=== PATIENT | female | born 1990 | race Caucasian/White ===

== ENCOUNTER 2021-10-04 14:45 | Inpatient (IN) ==
[2021-10-04] MEDS ORDERED: Melatonin 3 MG TABLET PO PRN (19:52)
[2021-10-04] MEDS ORDERED: Naloxone 0.4 MG/ML INJ IVP PRN (19:52)
[2021-10-04] MEDS ORDERED: Acetaminophen 325 MG TABLET PO PRN (20:07)
[2021-10-04] MEDS: Ringers Solution, Lactated 1,000 ML IVC SCH (22:24)
[2021-10-05] MEDS ORDERED: Acetaminophen IV 1,000 MG/100 ML BAG IVPB ONE (05:09)
[2021-10-05 06:21] LABS: Calcium 8.4 mg/dL (8.6-10.3); Magnesium 1.7 mg/dL (1.6-2.6); Phosphorous 1.8 mg/dL (2.7-4.5); Potassium 4.3 mEq/L (3.5-5.1)
[2021-10-05 06:27] LABS: Basophils % 0.2 %; Eosinophils % 0.1 %; Hematocrit 36.2 % (35.3-44.9); Hemoglobin 12.2 g/dL (11.5-15.4); Immature Granulocytes % 0.9 % (0-4); Mean Corpuscular HGB Conc 33.7 g/dL (31.6-35.5); Mean Platelet Volume 10.2 fL (9.4-12.4); Monocytes # 0.8 K/mcL (0.0-1.3); Monocytes % 6.6 %; Neutrophils # 10.3 K/mcL (1.6-8.9); Platelet Count 141 K/mcL (140-400); Red Blood Count 4.21 M/mcL (3.82-4.97); Red Cell Distribution Width 13.8 % (11.5-14.5); Segmented Neutrophils % 84.2 %; White Blood Count 12.2 K/mcL (4.3-11.1)
[2021-10-05] MEDS ORDERED: cefTRIAXone 1,000 MG in 0.9 % Sodium Chloride Mini Bag 100 ML IVPB SCH ×2 (07:00→12:00)
[2021-10-05] MEDS ORDERED: Ondansetron 4 MG/2 ML VIAL ONE (07:28)
[2021-10-05] MEDS ORDERED: *HR* Propofol 200 MG/20 ML VIAL IVP ONE (07:28)
[2021-10-05] MEDS ORDERED: *HR* Midazolam HCl 2 MG/2 ML VIAL ONE ×2 (07:28→08:26)
[2021-10-05] MEDS ORDERED: Lidocaine -MPF 2% 5 ML VIAL ONE ×2 (07:28→08:20)
[2021-10-05] MEDS ORDERED: *HR* FentaNYL (PF) 100 MCG/2 ML VIAL ONE (07:28)
[2021-10-05] MEDS ORDERED: Isovue-300 50ML VIAL ONE (07:39)
[2021-10-05] MEDS ORDERED: Dexmedetomidine HCl 400 MCG/100 ML MLS IVC ONE (07:43)
[2021-10-05] MEDS ORDERED: Melatonin 3 MG TABLET PO PRN (10:03)
[2021-10-05] MEDS ORDERED: Naloxone 0.4 MG/ML INJ IVP PRN (10:03)
[2021-10-05] MEDS ORDERED: Acetaminophen 325 MG TABLET PO PRN (10:03)
[2021-10-05] MEDS ORDERED: Ringers Solution, Lactated 1,000 ML IVC SCH (10:03)
[2021-10-05] MEDS: Ringers Solution, Lactated 1,000 ML IVC SCH (10:38)
[2021-10-06 03:31] LABS: Basophils % 0.1 %; Hematocrit 35.5 % (35.3-44.9); Immature Granulocytes % 0.7 % (0-4); Lymphocytes # 1.1 K/mcL (0.6-4.6); Lymphocytes % 7.4 %; Mean Corpuscular HGB Conc 33.8 g/dL (31.6-35.5); Mean Corpuscular Hemoglobin 30.2 pg (28.0-33.3); Mean Corpuscular Volume 89.2 fL (83.0-100.0); Mean Platelet Volume 10.2 fL (9.4-12.4); Monocytes % 6.9 %; Neutrophils # 12.2 K/mcL (1.6-8.9); Platelet Count 166 K/mcL (140-400); Red Blood Count 3.98 M/mcL (3.82-4.97); Red Cell Distribution Width 13.9 % (11.5-14.5); Segmented Neutrophils % 84.9 %; White Blood Count 14.4 K/mcL (4.3-11.1)
[2021-10-06 03:50] LABS: Calcium 8.7 mg/dL (8.6-10.3); Potassium 4.9 mEq/L (3.5-5.1)
[2021-10-06] MEDS ORDERED: cefTRIAXone 1,000 MG in 0.9 % Sodium Chloride Mini Bag 100 ML IVPB SCH (09:00)
[2021-10-06 11:42] VITALS: BP 145/99; PULSE 72; TEMP 98.5; O2SAT 96
== END 2021-10-06 12:30 | disposition home or self-care (01) | DRG 463 ==
LOC: 3ANU → SUATTDRO 18:52
PROVIDERS: ADMIT Student in an Organized Health Care Education/Training Program; ATTEND Internal Medicine